=== PATIENT | male | born 1940 | race Two or more races ===

== ENCOUNTER 2016-04-07 12:06 | Inpatient (IN) | payer OTHER ==
[~2016-04-07] VITALS: Ht 172.7 cm; Wt 63.5 kg
[2016-04-07 12:40] LABS: BASOPHILS # (AUTO) 0.2 /CMM (0.0-0.2); DIFF TOTAL % 100 %; EOSINOPHILS # (AUTO) 0.1 /CMM (0.0-0.7); EOSINOPHILS % (AUTO) 0.9 % (0.0-6.0); HEMATOCRIT 40 % (39-51); HEMOGLOBIN 13.5 g/dL (13.5-17.5); LYMPHOCYTES # (AUTO) 1.1 /CMM (0.8-4.8); LYMPHOCYTES % (AUTO) 12.9 % (20.0-44.0); MEAN CORPUSCULAR HEMOGLOBIN 33 PG (26.0-33.0); MEAN CORPUSCULAR HGB CONC 34 g/dl (31.0-36.0); MEAN CORPUSCULAR VOLUME 95 fL (80-96); MONOCYTES # (AUTO) 0.5 /CMM (0.1-1.30); MONOCYTES % (AUTO) 6.2 % (2.0-12.0); NEUTROPHILS # (AUTO) 6.8 /CMM (1.8-8.9); PLATELET COUNT (AUTO) 195 /CMM (150-450); RED BLOOD CELL COUNT(AUTO) 4.15 MIL/uL (4.5-6.0); WHITE BLOOD COUNT (AUTO) 8.7 K/uL (4.3-11.0)
[2016-04-07 12:47] LABS: ANION GAP 10 (5-14); CALCIUM, SERUM 8.3 mg/dL (8.5-10.1); CARBON DIOXIDE 28 mmol/L (21-32); CHLORIDE 104 mmol/L (98-107); CREATININE 0.7 mg/dL (0.6-1.3); GLUCOSE 96 mg/dL (74-106); POTASSIUM 4.1 mmol/L (3.5-5.1); SODIUM SERUM 138 mmol/L (136-145); UREA NITROGEN, BLOOD 26 mg/dL (7-18)
[2016-04-07 12:53] LABS: ACETAMINOPHEN 0 ug/ml (10-30); ALBUMIN 3.1 g/dL (3.4-5.0); ASPARTATE AMINOTRANSFERASE 16 U/L (15-37); BILIRUBIN,DIRECT 0.1 mg/dL (0.0-0.2); BILIRUBIN,TOTAL 0.5 mg/dL (0.2-1.0); INDIRECT BILIRUBIN 0.4 mg/dL (0.0-1.1); SALICYLATE 2.2 mg/dL (2.8-20.0); TOTAL PROTEIN, SERUM 6.5 g/dL (6.4-8.2)
[2016-04-07 13:03] LABS: ALANINE AMINOTRANSFERASE 5 U/L (12-78)
[2016-04-07 13:36] LABS: KETONES,URINE Negative (NEGATIVE); LEUKOCYTE ESTERASE ,URINE Trace (NEGATIVE); PH,URINE 6.5 (5.0-8.0)
[2016-04-07 13:37] LABS: ADD UA MICROSCOPIC YES
[2016-04-07 13:39] LABS: ADD URINE CULTURE NO; WBC,URINE 0-2 /HPF (0-3)
[2016-04-07 13:47] LABS: CANNABINOID, URINE NEGATIVE (NEGATIVE); PHENCYCLIDINE SCREEN,URINE NEGATIVE (NEGATIVE)
[2016-04-07] MEDS ORDERED: DOCU-170 PO (14:06)
[2016-04-07] MEDS ORDERED: LORA-258 PO (14:06)
[2016-04-07] MEDS ORDERED: DEXT1CAP3 PO (14:06)
[2016-04-07] MEDS ORDERED: LACT10SO PO (14:06)
[2016-04-07] MEDS ORDERED: CALC-15 PO (14:06)
[2016-04-07] MEDS ORDERED: TOLT2TAB2 PO (14:06)
[2016-04-07] MEDS ORDERED: CALC500T63 PO (14:06)
[2016-04-07] MEDS ORDERED: WARF4TAB41 PO (14:06)
[2016-04-07] MEDS ORDERED: ACID1TAB4 PO (14:06)
[2016-04-07] MEDS ORDERED: QUET25TA PO (14:06)
[2016-04-07] MEDS ORDERED: FURO-145 PO (14:06)
[2016-04-07] MEDS ORDERED: TAMS0.4C34 PO (14:06)
[2016-04-07] MEDS ORDERED: SENN8.6T6 PO (14:06)
[2016-04-07] MEDS ORDERED: ALPR0.5T PO (14:06)
[2016-04-07] MEDS ORDERED: SENNOSIDES 8.6 MG TABLET PO PRN (16:00)
[2016-04-07] MEDS ORDERED: ACETAMINOPHEN 325 MG TABLET PO PRN (16:00)
[2016-04-07] MEDS ORDERED: MAGNESIUM HYDROXIDE 30 ML UDC PO PRN (16:00)
[2016-04-07] MEDS ORDERED: MAG HYDROX/AL HYDROX/SIMETH 30 ML UDC PO PRN (16:00)
[2016-04-07] MEDS ORDERED: DOCUSATE SODIUM 100 MG CAPSULE PO PRN (16:00)
[2016-04-07] MEDS ORDERED: LORAZEPAM 0.5 MG TABLET PO PRN (16:00)
[2016-04-07 16:23] VITALS: BP 152/81
[2016-04-07] MEDS ORDERED: LACTULOSE 10 G/15 ML UDC (PYXIS) PO PRN (16:30)
[2016-04-07] MEDS: ACIDOPHILUS/BULGARICUS 1 EACH TAB.CHEW PO SCH (18:20)
[2016-04-07] MEDS: FUROSEMIDE 20 MG TABLET PO SCH (18:20)
[2016-04-07] MEDS: CALCIUM CARB 250MG /VITAMIN D 1 UDTAB PO SCH (18:21)
[2016-04-07] MEDS: TOLTERODINE 2 MG TABLET PO SCH (18:21)
[2016-04-07 20:00] VITALS: BP 116/53
[2016-04-07 20:04] VITALS: BP 116/63
[2016-04-07] MEDS ORDERED: DIVALPROEX SODIUM 250 MG TABLET.DR PO SCH (21:00)
[2016-04-07] MEDS ORDERED: Medication Not On Formulary EA (Dextromethorphan Hbr/Quinidine (Nuedexta 20-10 Mg Capsul PO SCH (21:00)
[2016-04-07] MEDS ORDERED: OLANZAPINE 5 MG/TAB.RAPDIS PO SCH (21:00)
[2016-04-07] MEDS: DIVALPROEX SODIUM 250 MG TABLET.DR PO SCH (21:03)
[2016-04-07] MEDS: QUETIAPINE FUMARATE 25 MG TABLET PO SCH (21:04)
[2016-04-07] MEDS: Z GUARD REMEDY 4 OZ OINT TP SCH (21:04)
[2016-04-07] MEDS ORDERED: TEMAZEPAM 7.5 MG CAPSULE PO PRN (22:00)
[2016-04-08 07:34] LABS: INR 1.48 (0.87-1.13)
[2016-04-08 07:49] LABS: ALBUMIN 3.4 g/dL (3.4-5.0); BILIRUBIN,TOTAL 0.6 mg/dL (0.2-1.0); POTASSIUM 4.4 mmol/L (3.5-5.1); TOTAL PROTEIN, SERUM 7.1 g/dL (6.4-8.2)
[2016-04-08 08:00] VITALS: BP 137/71
[2016-04-08] MEDS: FUROSEMIDE 20 MG TABLET PO SCH ×2 (09:49→17:21)
[2016-04-08] MEDS: ACIDOPHILUS/BULGARICUS 1 EACH TAB.CHEW PO SCH ×2 (09:49→17:21)
[2016-04-08] MEDS: CALCIUM CARB 250MG /VITAMIN D 1 UDTAB PO SCH ×2 (09:49→17:21)
[2016-04-08] MEDS: DIVALPROEX SODIUM 250 MG TABLET.DR PO SCH ×2 (09:49→20:52)
[2016-04-08] MEDS: CALCIUM CARBONATE 500 MG TAB.CHEW PO SCH (09:50)
[2016-04-08] MEDS: QUETIAPINE FUMARATE 25 MG TABLET PO SCH ×2 (09:50→20:52)
[2016-04-08] MEDS: Z GUARD REMEDY 4 OZ OINT TP SCH ×2 (09:50→20:52)
[2016-04-08] MEDS: TOLTERODINE 2 MG TABLET PO SCH ×2 (09:50→17:28)
[2016-04-08] MEDS: TAMSULOSIN 0.4 MG CAP.SR.24H PO SCH (09:58)
[2016-04-08 16:00] VITALS: BP 117/48
[2016-04-08] MEDS ORDERED: WARFARIN SODIUM 2 MG TABLET PO SCH (17:00)
[2016-04-08] MEDS: HYDROGEL DRESSING 90 GM TUBE TP PRN (17:20)
[2016-04-08] MEDS: WARFARIN SODIUM 2 MG TABLET PO SCH (17:22)
[2016-04-08] MEDS: HYDROGEL DRESSING 90 GM TUBE TP SCH ×2 (17:24→17:25)
[2016-04-08 20:00] VITALS: BP 128/91
[2016-04-09 08:00] VITALS: BP 117/60
[2016-04-09] MEDS: CALCIUM CARB 250MG /VITAMIN D 1 UDTAB PO SCH ×2 (09:14→17:09)
[2016-04-09] MEDS: TOLTERODINE 2 MG TABLET PO SCH ×2 (09:14→17:08)
[2016-04-09] MEDS: ACIDOPHILUS/BULGARICUS 1 EACH TAB.CHEW PO SCH ×2 (09:14→17:16)
[2016-04-09] MEDS: FUROSEMIDE 20 MG TABLET PO SCH ×2 (09:14→17:09)
[2016-04-09] MEDS: DIVALPROEX SODIUM 250 MG TABLET.DR PO SCH ×2 (09:15→21:20)
[2016-04-09] MEDS: TAMSULOSIN 0.4 MG CAP.SR.24H PO SCH (09:15)
[2016-04-09] MEDS: CALCIUM CARBONATE 500 MG TAB.CHEW PO SCH (09:15)
[2016-04-09] MEDS: QUETIAPINE FUMARATE 25 MG TABLET PO SCH ×3 (09:15→17:16)
[2016-04-09] MEDS: HYDROGEL DRESSING 90 GM TUBE TP SCH (09:15)
[2016-04-09] MEDS: Z GUARD REMEDY 4 OZ OINT TP SCH ×2 (09:16→21:21)
[2016-04-09 16:00] VITALS: BP 117/69
[2016-04-09] MEDS: WARFARIN SODIUM 2 MG TABLET PO SCH (17:14)
[2016-04-09 20:00] VITALS: BP 104/51
[2016-04-10] MEDS: Z GUARD REMEDY 4 OZ OINT TP SCH ×2 (09:00→21:41)
[2016-04-10] MEDS: DIVALPROEX SODIUM 250 MG TABLET.DR PO SCH ×2 (09:35→21:41)
[2016-04-10] MEDS: ACIDOPHILUS/BULGARICUS 1 EACH TAB.CHEW PO SCH ×2 (09:35→17:00)
[2016-04-10] MEDS: TOLTERODINE 2 MG TABLET PO SCH ×2 (09:35→18:07)
[2016-04-10] MEDS: FUROSEMIDE 20 MG TABLET PO SCH ×2 (09:35→17:00)
[2016-04-10] MEDS: TAMSULOSIN 0.4 MG CAP.SR.24H PO SCH (09:35)
[2016-04-10] MEDS: CALCIUM CARB 250MG /VITAMIN D 1 UDTAB PO SCH ×2 (09:35→18:07)
[2016-04-10] MEDS: HYDROGEL DRESSING 90 GM TUBE TP SCH (09:36)
[2016-04-10] MEDS: QUETIAPINE FUMARATE 25 MG TABLET PO SCH ×3 (09:36→18:14)
[2016-04-10] MEDS: CALCIUM CARBONATE 500 MG TAB.CHEW PO SCH (09:36)
[2016-04-10 11:18] VITALS: BP 111/57
[2016-04-10 16:00] VITALS: BP 131/66
[2016-04-10] MEDS: WARFARIN SODIUM 2 MG TABLET PO SCH (18:12)
[2016-04-10 20:00] VITALS: BP 99/62
[2016-04-11 08:00] VITALS: BP 118/67
[2016-04-11 08:56] LABS: INR 1.84 (0.87-1.13)
[2016-04-11] MEDS: CALCIUM CARBONATE 500 MG TAB.CHEW PO SCH (09:20)
[2016-04-11] MEDS: DIVALPROEX SODIUM 250 MG TABLET.DR PO SCH (09:20)
[2016-04-11] MEDS: HYDROGEL DRESSING 90 GM TUBE TP PRN (09:20)
[2016-04-11] MEDS: ACIDOPHILUS/BULGARICUS 1 EACH TAB.CHEW PO SCH (09:20)
[2016-04-11] MEDS: FUROSEMIDE 20 MG TABLET PO SCH (09:21)
[2016-04-11] MEDS: TAMSULOSIN 0.4 MG CAP.SR.24H PO SCH (09:21)
[2016-04-11] MEDS: QUETIAPINE FUMARATE 25 MG TABLET PO SCH ×2 (09:21→13:05)
[2016-04-11] MEDS: TOLTERODINE 2 MG TABLET PO SCH (09:21)
[2016-04-11] MEDS: HYDROGEL DRESSING 90 GM TUBE TP SCH (09:22)
[2016-04-11] MEDS: CALCIUM CARB 250MG /VITAMIN D 1 UDTAB PO SCH (09:30)
[2016-04-11] MEDS: Z GUARD REMEDY 4 OZ OINT TP SCH (09:32)
== END 2016-04-11 13:20 | DRG 885 ==
LOC: ER 12:12 → GPS 15:08
PROVIDERS: ADMIT Psychiatry & Neurology Psychiatry; ATTEND Family Medicine
DX: F29 Unspecified psychosis not due to a substance or known physiological condition (principal); F79 Unspecified intellectual disabilities; F03.91 Unspecified dementia, unspecified severity, with behavioral disturbance; G20 Parkinson's disease; F39 Unspecified mood [affective] disorder; F41.9 Anxiety disorder, unspecified; H54.8 Legal blindness, as defined in USA; I48.91 Unspecified atrial fibrillation; K21.9 Gastro-esophageal reflux disease without esophagitis; N40.0 Benign prostatic hyperplasia without lower urinary tract symptoms
CPT/HCPCS: 36415; 80048-TC; 80053-TC; 80061-TC; 80076-TC; 80305; 81000-TC; 85025-TC; 85610-TC; A4606; A6248; G0480; G6039-TC; Z7610